=== PATIENT | male | born 1975 | race Caucasian/White ===

== ENCOUNTER 2017-01-04 05:48 | Emergency (ER) | payer OTHER | END 2017-01-04 06:45 | disposition home or self-care (01) | LOC: ER 05:48 | DX: M94.0 Chondrocostal junction syndrome [Tietze] (principal); F17.200 Nicotine dependence, unspecified, uncomplicated; Z88.0 Allergy status to penicillin; Z88.5 Allergy status to narcotic agent ==

== ENCOUNTER 2017-01-24 09:19 | Emergency (ER) | payer OTHER | END 2017-01-24 10:21 | disposition home or self-care (01) | LOC: ER 09:19 | DX: L03.113 Cellulitis of right upper limb (principal); F17.200 Nicotine dependence, unspecified, uncomplicated; Z90.49 Acquired absence of other specified parts of digestive tract; Z90.89 Acquired absence of other organs; Z88.5 Allergy status to narcotic agent; Z88.0 Allergy status to penicillin | CPT/HCPCS: 96372; J2270; J2550 ==